=== PATIENT | male | born 1990 | race Caucasian/White ===

== ENCOUNTER 2016-11-11 13:46 | Emergency (ER) | payer SELFPAY ==
[~2016-11-11] VITALS: Ht 182.9 cm; Wt 138.6 kg
[~2016-11-11 13:46] MED LIST: ADDERALL20 MG PO; AMOXICILLIN 50500 MG PO; ATOXIMETIN-B1 CAP PO; IBU800 M1 PO; NORCO 325 MG-51 TAB PO; ZOFRAN ODT4 MG PO
[2016-11-11 14:46] LABS: BASO # 0.1 (0.0-0.2); BASO % 0.8 % (0.0-2.0); EOS # 0.1 (0.0-0.7); EOS % 1.7 % (0-4.0); GRAN # 4.1 (1.4-6.5); HEMATOCRIT 41.1 % (42.0-52.0); LYMPH # 2.3 (1.2-3.4); LYMPH % 32.6 % (20.0-51.0); MEAN CELL VOLUME 85 fl (80.0-100.0); MEAN CORPUSCULAR HEMOGLOBIN 29 pg (27.0-31.0); MEAN CORPUSCULAR HGB CONC 34 g/dl (33.0-37.0); MEAN PLATELET VOLUME 10.2 fl (7.4-10.4); MONO # 0.5 (0.1-0.6); MONO % 7.6 % (1.7-9.3); PLATELET COUNT 280 K/mm3 (130-400); RED BLOOD COUNT 4.82 M/mm3 (4.20-5.60); REDCELL DISTRIBUTION WIDTH-CV 12.4 % (11.5-14.5); WHITE BLOOD COUNT 7.1 K/mm3 (4.8-10.8)
[2016-11-11 15:01] LABS: ADJUSTED CALCIUM 9.2 mg/dL (8.4-10.2); ALBUMIN 4.5 gm/dL (3.5-5.0); BILIRUBIN,TOTAL 0.8 mg/dL (0.0-1.0); CALCIUM 9.6 mg/dL (8.4-10.2); CREATININE, serum 0.8 mg/dL (0.66-1.25); POTASSIUM 3.8 mmol/L (3.4-5.0); TOTAL PROTEIN 7.5 gm/dL (6.4-8.2)
[2016-11-11 15:48] VITALS: BP 145/76; PULSE 84; TEMP 98.9
[2016-11-11 15:54] LABS: PH 5 (5-8); SQUAMOUS EPITHELIAL None Seen /hpf; URINE APPEARANCE Clear; URINE BACTERIA None Seen /hpf; URINE BILIRUBIN Negative (NEGATIVE); URINE BLOOD Negative (NEGATIVE); URINE COLOR Yellow; URINE GLUCOSE Negative (NEGATIVE); URINE KETONE 1+ (NEGATIVE); URINE RBC 0-2 /hpf; URINE UROBILINOGEN Negative (NEGATIVE); URINE WBC 0-2 /hpf
== END 2016-11-11 15:48 | disposition home or self-care (01) ==
LOC: COL.ER 13:46
PROVIDERS: Emergency Medicine
DX: K60.2 Anal fissure, unspecified (principal)

== ENCOUNTER 2017-05-30 18:51 | Emergency (ER) | payer OTHER ==
[~2017-05-30] VITALS: Ht 182.9 cm; Wt 136.8 kg
[2017-05-30 19:06] VITALS: TEMP 98.2
[2017-05-30 19:43] LABS: COLLECTION METHOD CLEAN CATCH
[2017-05-30 19:52] LABS: MUCOUS Present /lpf; PH 5 (5-8); SQUAMOUS EPITHELIAL 0-2 /hpf; URINE APPEARANCE Hazy; URINE BACTERIA None Seen /hpf; URINE BILIRUBIN Negative (NEGATIVE); URINE BLOOD Negative (NEGATIVE); URINE COLOR Yellow; URINE GLUCOSE Negative (NEGATIVE); URINE KETONE 1+ (NEGATIVE); URINE LEUKOCYTE ESTERASE Negative (NEGATIVE); URINE NITRATE Negative (NEGATIVE); URINE PROTEIN(semi-quant) Negative (NEGATIVE); URINE RBC 0-2 /hpf; URINE UROBILINOGEN Negative (NEGATIVE)
[2017-05-30 19:56] LABS: BASO % 0.3 % (0.0-2.0); EOS # 0.1 (0.0-0.7); EOS % 0.7 % (0-4.0); GRAN # 11.9 (1.4-6.5); GRAN % 89.6 % (42.2-75.2); HEMATOCRIT 45.4 % (42.0-52.0); HEMOGLOBIN 15.4 g/dl (13.5-18.0); LYMPH # 0.6 (1.2-3.4); LYMPH % 4.6 % (20.0-51.0); MEAN CELL VOLUME 87 fl (80.0-100.0); MEAN CORPUSCULAR HEMOGLOBIN 29 pg (27.0-31.0); MEAN CORPUSCULAR HGB CONC 34 g/dl (33.0-37.0); MEAN PLATELET VOLUME 10.2 fl (7.4-10.4); MONO # 0.6 (0.1-0.6); MONO % 4.3 % (1.7-9.3); PLATELET COUNT 248 K/mm3 (130-400); RED BLOOD COUNT 5.24 M/mm3 (4.20-5.60); REDCELL DISTRIBUTION WIDTH-CV 12.4 % (11.5-14.5)
[2017-05-30 20:18] LABS: ALBUMIN 4.9 gm/dL (3.5-5.0); BILIRUBIN,TOTAL 0.8 mg/dL (0.0-1.0); CALCIUM 9.4 mg/dL (8.4-10.2); CREATININE, serum 0.94 mg/dL (0.66-1.25); TOTAL PROTEIN 7.9 gm/dL (6.4-8.2)
[2017-05-30 20:56] VITALS: BP 133/72; PULSE 96
== END 2017-05-30 20:57 | disposition home or self-care (01) ==
LOC: COL.ER 18:51
PROVIDERS: Emergency Medicine
DX: R10.31 Right lower quadrant pain (principal); Z87.19 Personal history of other diseases of the digestive system; Z98.890 Other specified postprocedural states
CPT/HCPCS: J2765; J3010; J7030; J7050; Q9967

== ENCOUNTER 2020-05-12 23:20 | Inpatient (IN) | payer SELFPAY ==
[~2020-05-12] VITALS: Ht 185.4 cm; Wt 139.0 kg
[2020-05-12 23:51] LABS: COLLECTION METHOD CATHETER
[2020-05-12 23:54] LABS: BASO % 0.3 % (0.0-2.0); EOS % 0.3 % (0-4.0); GRAN # 9.3 (1.4-6.5); GRAN % 78.2 % (42.2-75.2); HEMATOCRIT 48.2 % (42.0-52.0); HEMOGLOBIN 16.4 g/dl (13.5-18.0); LYMPH # 1.8 (1.2-3.4); LYMPH % 14.9 % (20.0-51.0); MEAN CELL VOLUME 86 fl (80.0-100.0); MEAN CORPUSCULAR HEMOGLOBIN 29 pg (27.0-31.0); MEAN CORPUSCULAR HGB CONC 34 g/dl (33.0-37.0); MEAN PLATELET VOLUME 9.8 fl (7.4-10.4); MONO # 0.7 (0.1-0.6); MONO % 5.8 % (1.7-9.3); PLATELET COUNT 319 K/mm3 (130-400); RED BLOOD COUNT 5.64 M/mm3 (4.20-5.60); REDCELL DISTRIBUTION WIDTH-CV 12.4 % (11.5-14.5)
[2020-05-12 23:58] LABS: MUCOUS Present /lpf; PH 5 (5-8); SQUAMOUS EPITHELIAL 0-2 /hpf; URINE APPEARANCE Hazy; URINE BACTERIA None Seen /hpf; URINE BILIRUBIN Negative (NEGATIVE); URINE BLOOD Negative (NEGATIVE); URINE COLOR Yellow; URINE GLUCOSE Negative (NEGATIVE); URINE KETONE 2+ (NEGATIVE); URINE LEUKOCYTE ESTERASE Negative (NEGATIVE); URINE NITRATE Negative (NEGATIVE); URINE PROTEIN(semi-quant) 1+ (NEGATIVE); URINE RBC 0-2 /hpf; URINE UROBILINOGEN Negative (NEGATIVE)
[2020-05-13] VITALS (485 sets, daily range): BP systolic 114–151; BP diastolic 66–100; PULSE 85–106; TEMP 36.9; O2SAT 84–97
[2020-05-13 00:04] LABS: ALBUMIN 4.6 gm/dL (3.5-5.0); BILIRUBIN,TOTAL 0.8 mg/dL (0.0-1.0); CALCIUM 9.4 mg/dL (8.4-10.2); CREATININE, serum 0.72 (0.66-1.25); MAGNESIUM 2.1 mg/dL (1.6-2.3); POTASSIUM 3.9 mmol/L (3.4-5.0)
[2020-05-13 00:05] LABS: TRICYCLIC ANTIDEPRESS URINE POSITIVE
[2020-05-13 01:12] LABS: ACETAMINOPHEN < 10 ug/mL (10-30); CREATINE KINASE 256 U/L (55-170); SALICYLATE < 1.0 mg/dL
[2020-05-13 02:08] LABS: ALCOHOL(ethanol),MEDICAL < 10 mg/dL
[2020-05-13 05:32] LABS: INR 1.2 (0.8-3.0); PROTHROMBIN TIME 13.6 SECONDS (9.7-12.8)
--- NOTE | 2020-05-13 07:00 | NUR ---
Report received from JOSSIE Callahan . PT in bed resting with eyes closed, will continue to monitor.
--- NOTE | 2020-05-13 08:14 | NUR ---
Patient is admitted after apparent suicide attempt. Will await psychiatric screening.
--- NOTE | 2020-05-13 08:52 | NUR ---
Assessmetn charted. Pt in bed resting, alert and oriented, arouses easily upon entry in room. States he does remember most of events that lead him here. Explained PPE and suicide precautions in place. Pt states he is "honestly feeling suicidal still" but has no plan in place and is not actively trying to harm self in any way. IVF to L A/C. VSS. Urine to DD in bag at side of bed is raymond and clear. Discussed elevated CK lab with pt. Pt agreeable. Refusing to eat but taking water in well. Denies pain but states feet are still numb from hypothermia but able to move them now. Call light in reach, discussed tentative plan for today. Will continue to monitor.
[2020-05-13 09:24] LABS: BILIRUBIN,TOTAL 0.9 mg/dL (0.0-1.0); CALCIUM 9.3 mg/dL (8.4-10.2); CREATININE, serum 0.65 (0.66-1.25); POTASSIUM 3.8 mmol/L (3.4-5.0)
--- NOTE | 2020-05-13 13:21 | NUR ---
Call received from poison control, updated with current labs and pt status, no new advice given, treatment pathway right now is advised. Pt resting in bed, sleeping between disturbances, states he is feeling very weak, discussed this is probably a result of the rhabdomyolysis. Pt states is curretnly and "always thinking about suicide". When asked what precipated this hospitalization pt stated that it was a culmination of financial, job, and personal things that became overwhelming. PRN ativan given for continued chest "discomfort" with negative EKG and troponin. Dr. Ashley is aware and wanted to give anti-anxiety to see if it helped releive this feeling. Denies needs, will continue to monitor.
--- NOTE | 2020-05-13 17:44 | NUR ---
Pt remains in bed, resting between disturbances. Dr Ashley down here this afternoon checking in on pt and downgraded pt to a level 1 suicide precaution. Pt recieved PRN ativan earlier to help with chest tightness and pt denies any gain from this. Resting in bed quietly. another update provided to family this evening. Report given to Ari Velázquez who will resume care.
--- NOTE | 2020-05-13 17:47 | NUR ---
Assumed care ot pt at this time. received report from JOSSIE Cohn.
--- NOTE | 2020-05-13 23:29 | NUR ---
PT RESTING IN BED DENIES ANY CURRENT PAIN OR DISCOMFORT, STATES THAT HE HAS SOME CHEST DISCOMFORT 4/10 WHEN HE COUGHS. HE STATES THAT THIS HAPPENED TO HIM EARLIER TODAY WHEN HE WAS FEELING A LITTLE ANXIOUS. PT STATES THAT HE NO LONGER FEELS LIKE HE WANTS TO . PT DID RECIEVED PRN ATIVAN FOR HIS ANXIETY. WILL CONTINUE TO MONITOR PT Q15 MIN ORDERS AND UPDATE PROVIDERS NEEDED.
[2020-05-14] VITALS (515 sets, daily range): BP systolic 122–146; BP diastolic 67–103; PULSE 69–95; TEMP 36.5–36.6; O2SAT 82–100
[2020-05-14 05:24] LABS: BASO # 0.1 (0.0-0.2); BASO % 0.7 % (0.0-2.0); EOS # 0.2 (0.0-0.7); EOS % 2.2 % (0-4.0); GRAN % 60.6 % (42.2-75.2); HEMATOCRIT 39.9 % (42.0-52.0); LYMPH # 1.9 (1.2-3.4); MEAN CELL VOLUME 87 fl (80.0-100.0); MEAN CORPUSCULAR HGB CONC 33 g/dl (33.0-37.0); MEAN PLATELET VOLUME 10.1 fl (7.4-10.4); MONO # 0.6 (0.1-0.6); MONO % 8.2 % (1.7-9.3); RED BLOOD COUNT 4.58 M/mm3 (4.20-5.60); REDCELL DISTRIBUTION WIDTH-CV 12.2 % (11.5-14.5)
[2020-05-14 05:26] LABS: HEMOGLOBIN 13.3 g/dl (13.5-18.0); MEAN CORPUSCULAR HEMOGLOBIN 29 pg (27.0-31.0)
[2020-05-14 05:27] LABS: PLATELET COUNT 218 K/mm3 (130-400)
[2020-05-14 05:37] LABS: ALBUMIN 3.4 gm/dL (3.5-5.0); BILIRUBIN,TOTAL 0.7 mg/dL (0.0-1.0); CALCIUM 8.3 mg/dL (8.4-10.2); CREATININE, serum 0.79 (0.66-1.25); POTASSIUM 3.9 mmol/L (3.4-5.0); TOTAL PROTEIN 6.1 gm/dL (6.4-8.2)
--- NOTE | 2020-05-14 07:00 | NUR ---
RECEIVED REPORT FROM JOSSIE HUNT. ASSUMED CARE OF PT AT THIS TIME.
--- NOTE | 2020-05-14 09:00 | NUR ---
PT RESTING IN BED, EASILY AROUSABLE TO VERBAL STIMULI. ALERT/ORIENTED X4. REPORTS CONTINUED SUICIDAL THOUGHTS, DENIES PLAN. UPDATED PT ON LABS AND PLAN OF CARE. PT CALM/COOPERATIVE.
--- NOTE | 2020-05-14 09:48 | NUR ---
UPDATE GIVEN TO BOTH MOM AND DAD. RECEIVED CALL FROM POISON CONTROL REQUESTING UPDATE ON PT. LAB VALUES GIVEN AND PT'S CURRENT MENTAL STATUS GIVEN. STATES THEY WILL CALL AGAIN TOMORROW FOR NEXT UPDATE.
--- NOTE | 2020-05-14 12:30 | NUR ---
Chaplain montgomery for patient while standing outside the door.
--- NOTE | 2020-05-14 18:20 | NUR ---
PT SITTING UP IN BED WATCHING TV/EATING DINNER. DENIES ANY COMPLAINTS AT THIS TIME. CALM/COOPERATIVE.
[2020-05-15] VITALS (583 sets, daily range): BP systolic 113–167; BP diastolic 63–119; PULSE 72–100; TEMP 97.1–98.5; O2SAT 75–100
[2020-05-15 05:52] LABS: BASO % 0.7 % (0.0-2.0); EOS # 0.1 (0.0-0.7); EOS % 2.2 % (0-4.0); GRAN # 3.8 (1.4-6.5); GRAN % 63.3 % (42.2-75.2); HEMATOCRIT 42.2 % (42.0-52.0); HEMOGLOBIN 14.3 g/dl (13.5-18.0); LYMPH # 1.6 (1.2-3.4); MEAN CELL VOLUME 87 fl (80.0-100.0); MEAN CORPUSCULAR HEMOGLOBIN 29 pg (27.0-31.0); MEAN CORPUSCULAR HGB CONC 34 g/dl (33.0-37.0); MONO # 0.5 (0.1-0.6); MONO % 7.5 % (1.7-9.3); PLATELET COUNT 241 K/mm3 (130-400); RED BLOOD COUNT 4.86 M/mm3 (4.20-5.60)
[2020-05-15 06:08] LABS: BILIRUBIN,TOTAL 0.8 mg/dL (0.0-1.0); CALCIUM 8.7 mg/dL (8.4-10.2); CREATININE, serum 0.81 (0.66-1.25); POTASSIUM 3.8 mmol/L (3.4-5.0); TOTAL PROTEIN 7.1 gm/dL (6.4-8.2)
--- NOTE | 2020-05-15 07:00 | NUR ---
RECEIVED REPORT FROM JOSISE ROSARIO. ASSUMED CARE OF PT AT THIS TIME.
--- NOTE | 2020-05-15 07:41 | NUR ---
PT SITTING UP IN BED EATING BREAKFAST TRAY. ALERT/ORIENTED X4, CALM/COOPERATIVE. PT DENIES ANY PAIN AT THIS TIME. STATES NUMBNESS TO HIS TOES FOR THE PAST TWO DAYS IS NOW SPREADING TO HIS FEET. PT CONTINUES TO HAVE O2 SATS 88-90 WHILES SLEEPING. REMAINS ON 2L NC. WILL CONTINUE TO MONITOR.
--- NOTE | 2020-05-15 11:42 | NUR ---
UPDATE GIVEN TO POISON CONTROL.
--- NOTE | 2020-05-15 11:44 | NUR ---
PT TEARFUL AND REQUESTING "NEXT TIME MY MOM CALLS, WILL YOU ASK HER SOME QUESTIONS." STATES HE IS HAVING DIFFICULTY WITH REMEMBERING RECENT EVENTS. PT SLIGHTLY MORE HYPERTENSIVE, BP 167/106, HR 87. NOTIFIED DR. PENA
--- NOTE | 2020-05-15 13:00 | NUR ---
UPDATE GIVEN TO PT'S PARENTS.
--- NOTE | 2020-05-15 16:33 | NUR ---
PT'S REMAINS HYPERTENSIVE (165/101). PRN LABETOLOL ADMINISTERED, SEE EMAR FOR DETAILS. WILL CONTINUES TO MONITOR.
--- NOTE | 2020-05-15 19:00 | NUR ---
Report provided from Melania SETHI. Pt resting in bed at this time.
--- NOTE | 2020-05-15 22:10 | NUR ---
Pts father called. Verified code with technical training instructor. Update on CK labs, trending downward. Lethargic and has been sleeping so far this shift. Encouraged and answered questions. Requesting that pt know they are calling and to reassure of their love for him. Will pass along to pt. Needing a work noted stating pt is in the hospital.
[2020-05-16] VITALS (197 sets, daily range): BP systolic 131–194; BP diastolic 69–123; PULSE 76–114; TEMP 98.1–98.3; O2SAT 75–100
[2020-05-16 05:28] LABS: BILIRUBIN,TOTAL 0.8 mg/dL (0.0-1.0); CALCIUM 8.8 mg/dL (8.4-10.2); CREATININE, serum 0.8 (0.66-1.25); POTASSIUM 3.8 mmol/L (3.4-5.0); TOTAL PROTEIN 6.9 gm/dL (6.4-8.2)
--- NOTE | 2020-05-16 07:08 | NUR ---
Report provided to Chetna Billy RN.
--- NOTE | 2020-05-16 22:53 | NUR ---
PT RESTING IN BED, DENIES PAIN OR DOA. VSS AT THIS TIME PT ON RA. WHEN ASKED IF PT HAD THOUGHTS OF HARMING HIMSELF, PT STATED HE ALWAYS HAS THOUGHTS OR NOT BEING HERE. WHEN ASKED IF HE HAD A PLAN OR WAS ATTEMPTING TO FORMULATE A PLAN, PT STATED NO. WILL CONTINUE TO DOCUMENT 15MIN CHECKS AND UPDATE PROVIDERS WITH ANY STATUS CHANGES. WILL CONTINUE TO MONITOR.
[2020-05-17] VITALS (340 sets, daily range): BP systolic 121–151; BP diastolic 65–98; PULSE 75–115; TEMP 98.2–98.4; O2SAT 90–98
[2020-05-17 06:40] LABS: ALBUMIN 4.5 gm/dL (3.5-5.0); CALCIUM 9.3 mg/dL (8.4-10.2); CREATININE, serum 0.74 (0.66-1.25); POTASSIUM 3.9 mmol/L (3.4-5.0); TOTAL PROTEIN 7.7 gm/dL (6.4-8.2)
--- NOTE | 2020-05-17 06:45 | NUR ---
REPORT RECEIVED FROM MARILEE SETHI. PT IS RESTING IN BED WATCHING TV. VSS. PT HAS NS RUNNING AT 100ML/HR. WILL CONTINUE TO MONITOR.
--- NOTE | 2020-05-17 09:45 | NUR ---
CARMELINA reviewed assessment from Dr. Hernandez. Notation reports a recommendation of [facility] for Crisis Stabilization unit upon medical clearance. Will continue to follow.
--- NOTE | 2020-05-17 11:10 | NUR ---
CALL PLACED FOR SCREEN TO [facility]. PAPER WORK FAXED PER THEIR REQUEST. PT UPDATED.
--- NOTE | 2020-05-17 13:34 | NUR ---
ZOOM MEETING WITH [facility] STARTED. IPAD GIVEN TO PT FOR SCREENING.
--- NOTE | 2020-05-17 14:27 | NUR ---
[facility] Screener stated she is recommending home with family. She has started a safety plan that she will fax over. Message left with to notify. Awaiting call back.
--- NOTE | 2020-05-17 14:56 | NUR ---
SPOKE WITH REGARDING [facility]'S RECOMMENDATION. STATES SHE IS OK WITH SAFETY PLAN. CALLED AND NOTIFIED OF ABOVE. STATES WILL DISCHARGE. PT NOTIFIED OF PLAN. CALL PLACED TO PT'S PARENTS FOR DISCHARGE. PT'S MOTHER UPDATED. AWAITING FAX FROM [employer] FOR SAFETY PLAN.
[2020-05-17] MEDS ORDERED: ABILIFY 10MG TA10 MG PO (15:57)
--- NOTE | 2020-05-17 16:58 | NUR ---
Safety plan received from [facility]. Pt agreed and signed. Signed copy faxed back to [place]. Discharge instruction discussed with pt. All questions answered. Instucted Pt of importance of picking up his presciption and taking as directed. Pt stated understanding. IV and tele dc'd. Pt wheeled out for discharge and was met by his father Jones.
--- NOTE | 2020-05-17 17:02 | NUR ---
Confirmation that [facility] received signed safety plan.
== END 2020-05-17 17:03 | disposition home or self-care (01) | DRG 918 ==
LOC: COL.ER 23:20 → ICU 05-13 03:43
PROVIDERS: Emergency Medicine; Family Medicine; Nurse Practitioner Family; Student in an Organized Health Care Education/Training Program; ADMIT Internal Medicine
DX: T48.1X2A Poisoning by skeletal muscle relaxants [neuromuscular blocking agents], intentional self-harm, initial encounter (principal); R45.851 Suicidal ideations; M62.82 Rhabdomyolysis; F31.30 Bipolar disorder, current episode depressed, mild or moderate severity, unspecified; F31.9 Bipolar disorder, unspecified; T68.XXXA Hypothermia, initial encounter; R94.5 Abnormal results of liver function studies; Z20.822 Contact with and (suspected) exposure to COVID-19; R07.89 Other chest pain; R20.2 Paresthesia of skin; R00.0 Tachycardia, unspecified; F90.9 Attention-deficit hyperactivity disorder, unspecified type; F41.1 Generalized anxiety disorder; I10 Essential (primary) hypertension; E66.9 Obesity, unspecified; F17.290 Nicotine dependence, other tobacco product, uncomplicated; Z68.39 Body mass index [BMI] 39.0-39.9, adult
CPT/HCPCS: 99223-AI; 99232-AI; 99239; J7030; J7120

== ENCOUNTER 2020-07-27 06:35 | Emergency (ER) | payer SELFPAY ==
[~2020-07-27] VITALS: Ht 185.4 cm; Wt 138.6 kg
[~2020-07-27 06:35] MED LIST changes: +ABILIFY 10MG TA10 MG PO
[2020-07-27 06:38] VITALS: BP 138/86; TEMP 98
[2020-07-27] MEDS ORDERED: ZYRTEC5 MG PO (06:59)
[2020-07-27] MEDS ORDERED: AMOXICILLIN 8751 TAB PO (07:14)
[2020-07-27] MEDS ORDERED: PREDNISONE20 MG PO (07:14)
[2020-07-27 07:27] VITALS: PULSE 84
== END 2020-07-27 07:28 | disposition home or self-care (01) ==
LOC: COL.ER 06:35
DX: J32.0 Chronic maxillary sinusitis (principal); F17.210 Nicotine dependence, cigarettes, uncomplicated

== ENCOUNTER 2020-08-05 08:56 | Emergency (ER) | payer OTHER ==
[~2020-08-05] VITALS: Ht 185.4 cm; Wt 140.9 kg
[~2020-08-05 08:56] MED LIST changes: +AMOXICILLIN 8751 TAB PO; +PREDNISONE20 MG PO; +ZYRTEC5 MG PO
[2020-08-05 09:55] LABS: BASO % 0.5 % (0.0-2.0); EOS # 0.1 (0.0-0.7); GRAN # 4.8 (1.4-6.5); GRAN % 62.4 % (42.2-75.2); HEMATOCRIT 44.1 % (42.0-52.0); HEMOGLOBIN 14.6 g/dl (13.5-18.0); LYMPH # 2.3 (1.2-3.4); LYMPH % 29.4 % (20.0-51.0); MEAN CELL VOLUME 89 fl (80.0-100.0); MEAN CORPUSCULAR HEMOGLOBIN 29 pg (27.0-31.0); MEAN CORPUSCULAR HGB CONC 33 g/dl (33.0-37.0); MEAN PLATELET VOLUME 10.2 fl (7.4-10.4); MONO # 0.5 (0.1-0.6); MONO % 6.3 % (1.7-9.3); PLATELET COUNT 280 K/mm3 (130-400); RED BLOOD COUNT 4.96 M/mm3 (4.20-5.60); REDCELL DISTRIBUTION WIDTH-CV 12.3 % (11.5-14.5)
[2020-08-05 10:02] LABS: ALANINE AMINOTRANSFERASE 47 U/L (4-49); ALBUMIN 4.4 gm/dL (3.5-5.0); ALKALINE PHOSPHATASE 58 U/L (50-136); ANION GAP 7 mmol/L (7-16); AST,SGOT 35 U/L (15-37); BILIRUBIN,TOTAL 0.2 mg/dL (0.0-1.0); BLOOD UREA NITROGEN 12 mg/dL (9-20); CALCIUM 9.3 mg/dL (8.4-10.2); CARBON DIOXIDE 28 mmol/L (22-30); CHLORIDE 107 mmol/L (98-107); CREATININE, serum 0.83 (0.66-1.25); GLUCOSE 92 mg/dL (74-106); POTASSIUM 4.3 mmol/L (3.4-5.0); SODIUM 141 mmol/L (137-145); TOTAL PROTEIN 7.8 gm/dL (6.4-8.2)
[2020-08-05 10:16] LABS: TROPONIN-I < 0.012 ng/mL (0.000-0.035)
[2020-08-05 11:20] VITALS: BP 149/94; PULSE 86; TEMP 97.6
== END 2020-08-05 11:20 | disposition home or self-care (01) ==
LOC: COL.ER 08:56
PROVIDERS: Emergency Medicine
DX: R07.89 Other chest pain (principal); R50.9 Fever, unspecified; R06.02 Shortness of breath; F32.9 Major depressive disorder, single episode, unspecified; F41.9 Anxiety disorder, unspecified; F17.210 Nicotine dependence, cigarettes, uncomplicated; Z20.822 Contact with and (suspected) exposure to COVID-19; Z79.52 Long term (current) use of systemic steroids

== ENCOUNTER 2020-11-18 12:36 | Emergency (ER) | payer SELFPAY ==
[~2020-11-18] VITALS: Ht 185.4 cm; Wt 140.9 kg
[2020-11-18 12:39] VITALS: TEMP 98
[2020-11-18 13:34] LABS: BASO # 0.1 (0.0-0.2); BASO % 0.5 % (0.0-2.0); EOS % 0.3 % (0-4.0); GRAN # 10.4 (1.4-6.5); GRAN % 80.2 % (42.2-75.2); HEMATOCRIT 44.8 % (42.0-52.0); HEMOGLOBIN 15.1 g/dl (13.5-18.0); LYMPH # 1.7 (1.2-3.4); LYMPH % 13.1 % (20.0-51.0); MEAN CELL VOLUME 87 fl (80.0-100.0); MEAN CORPUSCULAR HEMOGLOBIN 29 pg (27.0-31.0); MEAN CORPUSCULAR HGB CONC 34 g/dl (33.0-37.0); MEAN PLATELET VOLUME 10.2 fl (7.4-10.4); MONO # 0.7 (0.1-0.6); MONO % 5.4 % (1.7-9.3); PLATELET COUNT 321 K/mm3 (130-400); RED BLOOD COUNT 5.16 M/mm3 (4.20-5.60); REDCELL DISTRIBUTION WIDTH-CV 12.4 % (11.5-14.5)
[2020-11-18 13:45] LABS: ALANINE AMINOTRANSFERASE 72 U/L (4-49); ALBUMIN 4.4 gm/dL (3.5-5.0); ALKALINE PHOSPHATASE 59 U/L (50-136); ANION GAP 6 mmol/L (7-16); AST,SGOT 47 U/L (15-37); BILIRUBIN,TOTAL 0.6 mg/dL (0.0-1.0); BLOOD UREA NITROGEN 14 mg/dL (9-20); CARBON DIOXIDE 27 mmol/L (22-30); CHLORIDE 109 mmol/L (98-107); CREATININE, serum 1.04 (0.66-1.25); GLUCOSE 99 mg/dL (74-106); POTASSIUM 4.3 mmol/L (3.4-5.0); SODIUM 142 mmol/L (137-145); TOTAL PROTEIN 7.6 gm/dL (6.4-8.2)
[2020-11-18 13:46] LABS: ACETAMINOPHEN < 10 ug/mL (10-30); ALCOHOL(ethanol),MEDICAL < 10 mg/dL; SALICYLATE < 1.0 mg/dL
[2020-11-18 14:06] LABS: COLLECTION METHOD RANDOM VOIDED
[2020-11-18 14:17] LABS: MUCOUS Present /lpf; PH 5 (5-8); SQUAMOUS EPITHELIAL 0-2 /hpf; URINE APPEARANCE Hazy; URINE BACTERIA None Seen /hpf; URINE BILIRUBIN Negative (NEGATIVE); URINE BLOOD Negative (NEGATIVE); URINE COLOR Amber; URINE GLUCOSE Negative (NEGATIVE); URINE KETONE Trace (NEGATIVE); URINE LEUKOCYTE ESTERASE Negative (NEGATIVE); URINE NITRATE Negative (NEGATIVE); URINE PROTEIN(semi-quant) 1+ (NEGATIVE); URINE RBC 0-2 /hpf
[2020-11-18 14:27] LABS: TRICYCLIC ANTIDEPRESS URINE NEGATIVE
[2020-11-18 22:30] VITALS: BP 128/80; PULSE 97
== END 2020-11-18 22:30 ==
LOC: COL.ER 12:36
PROVIDERS: Emergency Medicine
DX: S00.81XA Abrasion of other part of head, initial encounter (principal); F31.9 Bipolar disorder, unspecified; F41.9 Anxiety disorder, unspecified; F17.210 Nicotine dependence, cigarettes, uncomplicated; Z20.822 Contact with and (suspected) exposure to COVID-19; Z79.899 Other long term (current) drug therapy; X79.XXXA Intentional self-harm by blunt object, initial encounter

== ENCOUNTER → 2020-11-30 | Outpatient (REF) | LOC: ZLAB.WCH 09:21 | DX: Z01.89 Encounter for other specified special examinations (principal) ==

== ENCOUNTER 2021-08-04 17:01 | Emergency (ER) | payer OTHER ==
[2021-08-04 17:11] VITALS: TEMP 98.5
[2021-08-04 17:37] LABS: COLLECTION METHOD CLEAN CATCH
[2021-08-04 17:50] LABS: AMORPHOUS CRYSTAL Present (NOT PRESENT); MUCOUS Present (NOT PRESENT); PH 6 (5-8); SQUAMOUS EPITHELIAL 0-2 /hpf (0-10); URINE APPEARANCE Cloudy (CLEAR/HAZY); URINE BACTERIA Rare /hpf (NONE SEEN); URINE BILIRUBIN Negative (NEGATIVE); URINE BLOOD Negative (NEGATIVE); URINE COLOR Yellow (YELLOW); URINE GLUCOSE Negative (NEGATIVE); URINE KETONE Trace (NEGATIVE); URINE LEUKOCYTE ESTERASE Negative (NEGATIVE); URINE NITRATE Negative (NEGATIVE); URINE PROTEIN(semi-quant) Negative (NEGATIVE); URINE RBC 0-2 /hpf (0-2); URINE UROBILINOGEN Negative (NEGATIVE)
[2021-08-04 18:13] LABS: BASO # 0.1 K/mm3 (0.0-0.2); BASO % 0.7 % (0.0-2.0); EOS # 0.1 K/mm3 (0.0-0.7); EOS % 1.1 % (0.0-4.0); GRAN % 60.8 % (42.2-75.2); HEMATOCRIT 44.2 % (42.0-52.0); HEMOGLOBIN 14.8 g/dl (13.5-18.0); LYMPH # 2.5 K/mm3 (1.2-3.4); LYMPH % 29.9 % (20.0-51.0); MEAN CELL VOLUME 89 fl (80.0-100.0); MEAN CORPUSCULAR HEMOGLOBIN 30 pg (27-31); MEAN CORPUSCULAR HGB CONC 34 g/dl (33.0-37.0); MEAN PLATELET VOLUME 9.9 fl (7.4-10.4); MONO # 0.6 K/mm3 (0.1-0.6); MONO % 7.3 % (1.7-9.3); PLATELET COUNT 293 K/mm3 (130-400); RED BLOOD COUNT 4.99 M/mm3 (4.20-5.60); REDCELL DISTRIBUTION WIDTH-CV 12.9 % (11.5-14.5)
[2021-08-04 18:29] LABS: BILIRUBIN,TOTAL 0.7 mg/dL (0.2-1.2); C-REACTIVE PROTEIN 0.18 mg/dL (0.00-0.50); CALCIUM 9.4 mg/dL (8.4-10.2); CREATININE, serum 0.86 mg/dL (0.72-1.25); POTASSIUM 3.7 mmol/L (3.5-4.5); TOTAL PROTEIN 6.9 gm/dL (6.2-8.1)
[2021-08-04 19:43] VITALS: BP 182/97; PULSE 88
== END 2021-08-04 19:43 | disposition home or self-care (01) ==
LOC: COL.ER 17:01
PROVIDERS: Physician Assistant
DX: R10.11 Right upper quadrant pain (principal); R10.31 Right lower quadrant pain; R10.33 Periumbilical pain; R00.0 Tachycardia, unspecified; F17.290 Nicotine dependence, other tobacco product, uncomplicated
CPT/HCPCS: J1885; J7030; Q9967

== ENCOUNTER 2022-01-16 14:28 | Emergency (ER) | payer OTHER ==
[~2022-01-16] VITALS: Ht 185.4 cm; Wt 122.7 kg
[2022-01-16 15:04] VITALS: TEMP 97.6
[2022-01-16 16:45] VITALS: BP 145/87; PULSE 71
== END 2022-01-16 16:45 | disposition home or self-care (01) ==
LOC: COL.ER 14:28
DX: S02.2XXA Fracture of nasal bones, initial encounter for closed fracture (principal); F17.200 Nicotine dependence, unspecified, uncomplicated; Z28.311 Partially vaccinated for COVID-19; W22.8XXA Striking against or struck by other objects, initial encounter; Y92.59 Other trade areas as the place of occurrence of the external cause; Y99.0 Civilian activity done for income or pay